=== PATIENT | female | born 1995 | race African-American/Black ===

== ENCOUNTER 2016-12-04 15:27 | Emergency (ER) | payer OTHER ==
[~2016-12-04] VITALS: Ht 157.5 cm; Wt 66.0 kg
[2016-12-04 15:29] VITALS: BP 129/85; PULSE 92; TEMP 36.8; O2SAT 98; Ht 157.5 cm; Wt 66.0 kg
--- NOTE | 2016-12-04 16:03 | DIAGNOSTIC IMAGING REPORT ---
RIGHT ANKLE MIN 3 VIEWS ROUTINE CLINICAL HISTORY: Right ankle pain status post trauma COMPARISON: None. DISCUSSION: No fractures or dislocations are visualized. The ankle mortise appears intact on these nonstress views. IMPRESSION: No fractures or dislocations identified. Electronically signed by: Anthony Gonzalez M.D. 12/04/2016 4:00 PM Dictated Date/Time: 12/04/2016 4:00 PM
[2016-12-04] MEDS ORDERED: BCPILLS PO (16:07)
--- NOTE | 2016-12-04 16:11 | EMERGENCY ROOM VISIT NOTE ---
ED Visit Note First contact with patient: 15:32 CHIEF COMPLAINT: Right Ankle injury HISTORY OF PRESENT ILLNESS: This 21-year-old female presents the ER with chief complaint of right ankle pain. The patient states she woke up this morning and has pain in her right ankle and cannot bear weight on that leg due to the pain. The patient does admit that she was out drinking last night and therefore does not know how she injured her ankle. The patient denies any prior injury to her ankle. The patient denies any knee pain. REVIEW OF SYSTEMS: 6 system review was performed and was negative unless stated otherwise in history of present illness. PMH: No prior significant ankle injury. The patient is generally healthy with no chronic medical problems or a history of major surgery. SOCIAL HISTORY: Patient is a [employer] student. The patient denies any tobacco use but admits to occasional alcohol use. PHYSICAL EXAM: Vital Signs: Were reviewed Reviewed Nurse's notes. GEN.: 21-year -old female appears in no acute distress. MENTAL STATUS: Alert, oriented, and cooperative. RIGHT ANKLE: The ankle is swollen and tender over the lateral aspect but the skin is intact and there is no ligamentous instability. There is no deformity. The foot and toes are warm and well-perfused. Sensation to pain and light touch is intact. EMERGENCY DEPARTMENT COURSE: The patient was evaluated. The patient was offered pain medication but declined. X-ray of the right ankle was ordered and interpreted by the radiologist and myself. DIAGNOSTICS:RIGHT ANKLE MIN 3 VIEWS ROUTINE CLINICAL HISTORY: Right ankle pain status post trauma COMPARISON: None. DISCUSSION: No fractures or dislocations are visualized. The ankle mortise appears intact on these nonstress views. IMPRESSION: No fractures or dislocations identified. Electronically signed by: Anthony Gonzalez M.D. 12/04/2016 4:00 PM The patient was informed of findings. The patient was placed in a gel splint and crutches. She was discharged home in stable condition DIAGNOSIS: Sprained right Ankle TREATMENT PLAN: Ice and elevation over the next 24 hours. Ibuprofen, 600 mg every 6 hours if needed for pain. Use crutches and wear gel splint until weightbearing is tolerable. If there is no improvement in 3-5 days followup with [facility] Current/Historical Medications Scheduled Control Pills ( Control Pills), 1 TAB PO DAILY Allergies Coded Allergies: No Known Allergies (Unverified , 10/04/13) Vital Signs Date Time Temp Pulse Resp B/P Pulse Ox O2 Delivery O2 Flow Rate FiO2 12/04/16 15:29 36.8 92 16 129/85 98 Room Air Departure Information Referrals [facility] (PCP) Patient Instructions [facility]
== END 2016-12-04 16:34 | disposition home or self-care (01) ==
LOC: C.EDB 15:28 → C.EDD 16:34
DX: S93.401A Sprain of unspecified ligament of right ankle, initial encounter (principal); X58.XXXA Exposure to other specified factors, initial encounter